=== PATIENT | female | born 1995 | race Caucasian/White ===

== ENCOUNTER 2021-10-15 20:16 | Emergency (ER) | payer OTHER ==
[~2021-10-15 20:16] MED LIST: ZANTAC150 MG PO
== END 2021-10-15 22:20 | disposition home or self-care (01) ==
LOC: ER1 20:16
DX: S50.02XA Contusion of left elbow, initial encounter (principal); W19.XXXA Unspecified fall, initial encounter
CPT/HCPCS: 73080; 73090; 99283